=== PATIENT | male | born 1980 | race Caucasian/White ===

== ENCOUNTER 2025-08-06 16:36 | Emergency (ER) | payer SELFPAY ==
[2025-08-06 16:52] VITALS: BP 167/80; PULSE 72; RESP 17; TEMP 36.4; O2SAT 100; BMI 25.1
--- NOTE | 2025-08-06 16:58 | DI.RAD.S_ITS ---
PROCEDURE: XR HAND LT MIN 3V INDICATIONS: pain TECHNIQUE: 4 views of the hand(s) acquired. COMPARISON: None. FINDINGS: Bones: No fractures or dislocations. Likely intraosseous ganglion cyst within the radial base of the thumb proximal phalanx. Carpal bones are normally aligned. No suspicious bony lesions. Soft tissues: No suspicious soft tissue calcifications. IMPRESSION: No acute bony abnormality. Dictated by: Joseph Bueno M.D. on 08/06/2025 at 17:37 Approved by: Joseph Bueno M.D. on 08/06/2025 at 17:37
[2025-08-06 19:40] VITALS: BP 140/85; PULSE 71; O2SAT 99
--- NOTE | 2025-08-06 19:56 | ED.UPPEXIN ---
HPI - Extremity Injury (Upper) General Chief Complaint: Extremity Injury, Upper Stated Complaint: Lt hand injury / pain Time Seen by Provider: 08/06/25 19:55 Source: patient Mode of arrival: Ambulatory History of Present Illness HPI narrative: Patient is a 44-year-old male without any significant past medical history comes into the ED from home for evaluation of left hand pain, he states that he was working on his deck when a wooden Pallet slipped and landed on it crushing it, he does have some superficial scrapes not on any blood thinners but states that it is swollen painful to move. Denies any other injuries, no other complaints at this time. Related Data Home Medications ?Medication ?Instructions ?Recorded ?Confirmed No Known Home Medications 11/04/20 11/04/20 Allergies Allergy/AdvReac Type Severity Reaction Status Date / Time No Known Drug Allergies Allergy Verified 08/06/25 16:52 Review of Systems Review of Systems Narrative: General: Denies fever, chills, weight loss HEENT: Denies headache, eye drainage, eye irritation, head trauma, sore throat, voice change Cardiovascular: Denies any chest pain, palpitations, tachycardia Respiratory: Denies any shortness of breath, cough, wheeze, stridor GI/: Denies any abdominal pain, nausea, vomiting, diarrhea, bright red blood per rectum, melanotic stools, urinary frequency, urinary retention, dysuria, hematuria MSK: Positive left hand pain Skin: Denies any rashes, lesions, discoloration Neuro: Denies any headache, lightheadedness, dizziness, fainting, weakness Psych: Denies SI/HI Patient History Medical History (Updated 08/06/25 @ 20:03 by Stew Buckley DO) No active medical problems Exam Narrative Exam Narrative: General: Cooperative, well-developed, not in acute distress HEENT: Normocephalic, atraumatic, PERRLA, normal sclera, eyelids normal Neck: Active full range of motion, atraumatic Chest: Normal to inspection, negative crepitus, no overlying erythema ecchymosis Respiratory: Normal respiratory effort, not in acute respiratory distress, clear to auscultation bilaterally negative cough, wheeze, tachypnea, rhonchi, rales Cardiology: Regular rate rhythm negative gallop, murmur, rubs GI/: No tenderness to palpation, soft, non rigid, normal to inspection, exam deferred MSK: Patient with superficial abrasions noted to the left hand as well as the 1st 3 fingers, it is neurovascularly intact, he also has ecchymosis noted to the back of the hand otherwise he has full active passive range of motion. Skin: No rashes or lesions noted Neuro: Alert awake oriented x3, moves all 4 extremities spontaneously, cranial nerves intact, able to answer all questions appropriately follows commands appropriately Psych: Cooperative, negative suicidal or homicidal ideations Initial Vital Signs Initial Vital Signs: Vital Signs Temperature 97.5 F L 08/06/25 16:52 Pulse Rate 72 08/06/25 16:52 Respiratory Rate 17 08/06/25 16:52 Blood Pressure 167/80 H 08/06/25 16:52 Pulse Oximetry 100 08/06/25 16:52 Oxygen Delivery Method Room Air 08/06/25 16:52 Course Orders Ordered: ED Orders 08/06/25 16:58 XR hand LT min 3V Stat Vital Signs Vital signs: Vital Signs - 8 hr 08/06/25 16:52 08/06/25 19:40 08/06/25 19:40 Temperature 97.5 F L Pulse Rate 72 71 Respiratory Rate 17 Blood Pressure 167/80 H 140/85 Pulse Oximetry 100 99 Oxygen Delivery Method Room Air MDM - Extremity Injury (Upper) MDM Narrative Medical decision making narrative: 44-year-old male without any significant past medical history comes into the ED from home for evaluation of left-sided hand pain, states this happened after a he was working on a deck and a Pallet slipped and landed on his hand crushing it, x-ray performed here in the emergency department does not show any acute traumatic injury he states his tetanus is up-to-date. Patient does have contusion/ecchymosis noted to the back of the left hand, he also has some superficial abrasions to the lateral aspects of the 1st 3 fingers otherwise he is neurovascularly intact. I did offer patient kitty taping/splinting to help with symptomatic relief. Compartments are soft, no indication or suspicion for compartment syndrome at this time. However he states that he would like to just do this at home. Patient was given strict return precautions he verbalized understanding of this and agrees to being discharged home with outpatient follow up Discharge Plan Departure Patient Disposition: Home Clinical Impression: Contusion of hand, Abrasion of hand Instructions: DI for Contusion Activity Restrictions/Additional Instructions: Please use ice to help with your swelling aches and pains, You may use Motrin Tylenol also help with your symptoms Please follow up with the primary care doctor as needed Please read the discharge instructions sheet carefully and bring all papers to all doctor follow-up visits, as it may contain information that your doctor may want to see. Disease processes change and evolve, if your symptoms worsen or if you develop any new symptoms that are concerning to you please return for evaluation. Your evaluation today does not show any evidence of any life-threatening/serious illnesses requiring admission to the hospital or surgery. Please follow-up with your doctor for re-evaluation in approximately 1 day. Seek immediate medical attention for any worrisome symptoms. *If you do not have a primary care provider please contact the [facility] Resource line at [phone]. They will ask some questions about your medical history and help get you set up with a doctor in the community. Prescriptions: No Action No Known Home Medications Referrals: Miscellaneous,Doctor, [Primary Care Provider, Medical] Stand Alone Forms: Patient Portal/API
[2025-08-06 20:00] VITALS: BP 127/76; PULSE 63; O2SAT 99
== END 2025-08-06 20:15 | disposition home or self-care (01) ==
PROVIDERS: Emergency Provider Student in an Organized Health Care Education/Training Program
DX: S60.222A Contusion of left hand, initial encounter (principal); S60.512A Abrasion of left hand, initial encounter; W23.0XXA Caught, crushed, jammed, or pinched between moving objects, initial encounter
CPT/HCPCS: 73130; 99281; 99283